=== PATIENT | female | born 1985 | race Caucasian/White ===

== ENCOUNTER 2016-09-14 14:11 | Emergency (ER) | payer MEDICAID ==
[2016-09-14 14:24] VITALS: BP 121/83
[2016-09-14] MEDS ORDERED: Sodium Chloride 0.9% 10 ML Syringe FLUSH PRN (15:18)
[2016-09-14] MEDS ORDERED: LORazepam 2 MG/ML MDV IVPUSH ONE (15:19)
[2016-09-14] MEDS ORDERED: Sodium Chloride 0.9% 1,000 ML IV ONE (15:19)
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
--- NOTE | 2016-09-14 16:16 | CR ---
Chest: Two views of the chest were obtained. Comparison: No previous study. Heart size and mediastinum are normal. Lungs are clear but hyperinflated. Bony structures are grossly intact. Impression: 1. Emphysematous change. No acute intrathoracic process is seen. Diagnostic code #2
== END 2016-09-14 18:30 | disposition home or self-care (01) ==
LOC: JD.ED 14:11 → SUPCPDRO 14:11 → JD.ED 18:30
DX: F41.8 Other specified anxiety disorders (principal); F17.210 Nicotine dependence, cigarettes, uncomplicated
CPT/HCPCS: 36415; 71020; 80053; 80306; 81001; 83735; 84703; 85025; 86140; 93005; 96361; 96374; 99285; G0480; J2060; J7040; J7050

== ENCOUNTER 2016-11-24 22:10 | Emergency (ER) | payer MEDICAID ==
[2016-11-24 22:18] VITALS: BP 118/83
[2016-11-24] MEDS ORDERED: Metoclopramide 10 MG/2 ML SDV IVPUSH ONE (22:23)
--- NOTE | 2016-11-24 22:28 | EDM.PDOC ---
ED HPI GENERAL MEDICAL PROBLEM - General Chief Complaint: Drug or Alcohol Abuse Stated Complaint: [facility] Time Seen by Provider: 11/24/16 22:23 Source of Information: Reports: Patient History Limitations: Reports: No Limitations - History of Present Illness INITIAL COMMENTS - FREE TEXT/NARRATIVE: 31-year-old female brought to the ED per local ambulance after they were summoned to a local home where she had passed out. History suggests that she left the bar with a unknown gentleman. She's been drinking vodka most of the day. She was alert and could speak to ambulance personnel. Similarly she was alert here in the ED but is obviously severely intoxicated by alcohol or other substances. Denies trauma or falls or head injuries. She denies being . She reports sexual relationship was consensual and that she was not raped. She denies any nausea or vomiting. Not sure when she ate last. Onset: Today Onset Date: 11/24/16 Duration: Hour(s): (Has been drinking most of the afternoon and evening hours.) Location: Reports: Generalized (Intoxicated.) Severity: Moderate Improves with: Reports: None Worsens with: Reports: None Context: Reports: Other (Intoxication by alcohol and/or other substances.) Associated Symptoms: Reports: Confusion, Malaise, Weakness. Denies: Chest Pain , Cough, cough w sputum, Diaphoresis, Fever/Chills, Headaches, Nausea/Vomiting, Rash, Seizure, Shortness of Breath, Syncope Treatments RN EMERGENCY: Reports: Other (see below) (None known.) Headache Pain Score (Numeric/FACES): 2 - Related Data Allergies Allergy/AdvReac Type Severity Reaction Status Date / Time No Known Allergies Allergy Verified 09/14/16 14:32 Home Meds: Home Meds LORazepam [Ativan] 0.5 mg PO TID PRN #9 tablet 09/14/16 [Rx] Mirtazapine [Remeron] 30 mg PO BEDTIME #30 tablet 09/14/16 [Rx] Citalopram [Celexa] 0 mg PO DAILY 11/24/16 [History] Past Medical History Psychiatric History: Reports: Addiction, Anxiety, Depression, Emotional Problems , Panic Attack Social & Family History - Tobacco Use Smoking Status *Q: Current Every Day Smoker Years of Tobacco use: 17 Packs/Tins Daily: 1 - Caffeine Use Caffeine Use: Reports: Coffee, Tea - Recreational Drug Use Recreational Drug Use: No - Living Situation & Occupation Living situation: Reports: Single Occupation: Unemployed ED ROS GENERAL - Review of Systems Review Of Systems: See Below Constitutional: Reports: Malaise, Decreased Appetite HEENT: Reports: Vision Change (Vision is blurred at times) Respiratory: Reports: No Symptoms Cardiovascular: Reports: No Symptoms Endocrine: Reports: No Symptoms GI/Abdominal: Reports: No Symptoms : Reports: Frequency Musculoskeletal: Reports: No Symptoms Skin: Reports: No Symptoms Neurological: Reports: Dizziness, Other (Trouble concentrating) Psychiatric: Reports: No Symptoms Hematologic/Lymphatic: Reports: No Symptoms Immunologic: Reports: No Symptoms - Physical Exam Exam: See Below Exam Limited By: Intoxication (Smells strongly of vodka.) General Appearance: Lethargic, Other (Disheveled appearance. Not wearing any underwear and looks to be wearing male pair of Blue jeans.) Eye Exam: Bilateral Eye: Nystagmus (Bilaterally on lateral gaze.) Throat/Mouth: Normal Inspection, Normal Lips, Normal Oropharynx Head Exam: Atraumatic, Normocephalic Neck: Normal Inspection, Supple, Non-Tender, Full Range of Motion Respiratory/Chest: No Respiratory Distress, Lungs Clear, Normal Breath Sounds, No Accessory Muscle Use Cardiovascular: Normal Peripheral Pulses, Regular Rate, Rhythm, No Edema, No Gallop, No Murmur GI/Abdominal: Normal Bowel Sounds, Soft, Non-Tender, No Organomegaly, No Abnormal Bruit, Other (Question palpable uterine fundus at 18 weeks gestation.) Neuro Exam (Abbreviated): CN II-XII Intact DTR: 0: Patella (R), Patella (L), 1+: Bicep (R), Bicep (L), Patella (R), Patella (L) Back Exam: Normal Inspection, Full Range of Motion. No: CVA Tenderness (L), CVA Tenderness (R) Extremities: Normal Inspection, Normal Range of Motion, Non-Tender, No Pedal Edema, Normal Capillary Refill Psychiatric: Flat Affect Skin Exam: Warm, Dry, Intact, Normal Color, No Rash Course - Vital Signs Last Recorded V/S: Last Vital Signs Temp 36.2 C 11/24/16 22:16 Pulse 89 11/24/16 22:16 Resp 17 11/24/16 22:16 BP 118/83 11/24/16 22:16 Pulse Ox 98 11/24/16 22:16 - Orders/Labs/Meds Orders: Active Orders 24 hr Category Date Time Status Dextrose 5%-0.9% NaCl [Dextrose 5%-Normal Saline] 1,000 Med 11/24/16 22:30 Active ml IV ASDIRECTED Medication Orders Dextrose/Sodium Chloride (Dextrose 5%-Normal Saline) 1,000 mls @ 150 mls/hr IV ASDIRECTED MIKE Last Admin: 11/24/16 22:27 Dose: 150 mls/hr Labs: Laboratory Tests 11/24/16 11/24/16 11/24/16 Range/Units 22:25 22:31 22:31 WBC 7.08 (3.98-10.04) K/mm3 RBC 4.06 (3.98-5.22) M/mm3 Hgb 13.1 (11.2-15.7) gm/L Hct 38.9 (34.1-44.9) % MCV 95.8 H (79.4-94.8) fl MCH 32.3 H (25.6-32.2) pg MCHC 33.7 (32.2-35.5) g/dl RDW Std Deviation 44.5 (36.4-46.3) fL Plt Count 224 (182-369) K/mm3 MPV 9.8 (9.4-12.3) fl Neutrophils % (Manual) 58 (40-60) % Band Neutrophils % 0 (0-10) % Lymphocytes % (Manual) 24 (20-40) % Atypical Lymphs % 0 % Monocytes % (Manual) 14 H (2-10) % Eosinophils % (Manual) 3 (0.7-5.8) % Basophils % (Manual) 0 L (0.1-1.2) Myelocytes % 1 Platelet Estimate Adequate Plt Morphology Comment Normal RBC Morph Comment Normal Sodium 143 (136-145) mEq/L Potassium 3.8 (3.5-5.1) mEq/L Chloride 109 H (98-107) mEq/L Carbon Dioxide 25 (21-32) mEq/L Anion Gap 12.8 (5-15) BUN 12 (7-18) mg/dL Creatinine 0.9 (0.55-1.02) mg/dL Est Cr Clr Drug Dosing 97.04 mL/min Estimated GFR (MDRD) > 60 (>60) mL/min BUN/Creatinine Ratio 13.3 L (14-18) Glucose 89 (74-106) mg/dL Calcium 8.1 L (8.5-10.1) mg/dL Total Bilirubin 0.2 (0.2-1.0) mg/dL AST 16 (15-37) U/L ALT 20 (14-59) U/L Alkaline Phosphatase 93 (46-116) U/L Total Protein 8.0 (6.4-8.2) g/dl Albumin 4.0 (3.4-5.0) g/dl Globulin 4.0 gm/dL Albumin/Globulin Ratio 1.0 (1-2) Amylase 57 (25-115) U/L HCG, Qual (NEGATIVE) Urine Opiates Screen Negative (NEGATIVE) Ur Buprenorphine Scrn Negative (NEGATIVE) Ur Oxycodone Screen Negative (NEGATIVE) Urine Methadone Screen Negative (NEGATIVE) Ur Propoxyphene Screen Negative (NEGATIVE) Ur Barbiturates Screen Negative (NEGATIVE) Ur Tricyclics Screen Negative (NEGATIVE) Ur Phencyclidine Scrn Negative (NEGATIVE) Ur Amphetamine Screen Negative (NEGATIVE) U Methamphetamines Scrn Negative (NEGATIVE) U Benzodiazepines Scrn Negative (NEGATIVE) U Cocaine Metab Screen Negative (NEGATIVE) U Marijuana (THC) Screen Negative (NEGATIVE) Ethyl Alcohol 0.29 (0.00) gm% 11/24/16 Range/Units 22:31 WBC (3.98-10.04) K/mm3 RBC (3.98-5.22) M/mm3 Hgb (11.2-15.7) gm/L Hct (34.1-44.9) % MCV (79.4-94.8) fl MCH (25.6-32.2) pg MCHC (32.2-35.5) g/dl RDW Std Deviation (36.4-46.3) fL Plt Count (182-369) K/mm3 MPV (9.4-12.3) fl Neutrophils % (Manual) (40-60) % Band Neutrophils % (0-10) % Lymphocytes % (Manual) (20-40) % Atypical Lymphs % % Monocytes % (Manual) (2-10) % Eosinophils % (Manual) (0.7-5.8) % Basophils % (Manual) (0.1-1.2) Myelocytes % Platelet Estimate Plt Morphology Comment RBC Morph Comment Sodium (136-145) mEq/L Potassium (3.5-5.1) mEq/L Chloride (98-107) mEq/L Carbon Dioxide (21-32) mEq/L Anion Gap (5-15) BUN (7-18) mg/dL Creatinine (0.55-1.02) mg/dL Est Cr Clr Drug Dosing mL/min Estimated GFR (MDRD) (>60) mL/min BUN/Creatinine Ratio (14-18) Glucose (74-106) mg/dL Calcium (8.5-10.1) mg/dL Total Bilirubin (0.2-1.0) mg/dL AST (15-37) U/L ALT (14-59) U/L Alkaline Phosphatase (46-116) U/L Total Protein (6.4-8.2) g/dl Albumin (3.4-5.0) g/dl Globulin gm/dL Albumin/Globulin Ratio (1-2) Amylase (25-115) U/L HCG, Qual Negative (NEGATIVE) Urine Opiates Screen (NEGATIVE) Ur Buprenorphine Scrn (NEGATIVE) Ur Oxycodone Screen (NEGATIVE) Urine Methadone Screen (NEGATIVE) Ur Propoxyphene Screen (NEGATIVE) Ur Barbiturates Screen (NEGATIVE) Ur Tricyclics Screen (NEGATIVE) Ur Phencyclidine Scrn (NEGATIVE) Ur Amphetamine Screen (NEGATIVE) U Methamphetamines Scrn (NEGATIVE) U Benzodiazepines Scrn (NEGATIVE) U Cocaine Metab Screen (NEGATIVE) U Marijuana (THC) Screen (NEGATIVE) Ethyl Alcohol (0.00) gm% Meds: Medications Generic Name Dose Route Start Last Admin Trade Name Freq PRN Reason Stop Dose Admin Dextrose/Sodium Chloride 1,000 mls @ 150 mls/hr 11/24/16 22:30 11/24/16 22:27 Dextrose 5%-Normal Saline IV 150 mls/hr ASDIRECTED MIKE Administration Discontinued Medications Generic Name Dose Route Start Last Admin Trade Name Freq PRN Reason Stop Dose Admin Metoclopramide HCl 10 mg 11/24/16 22:23 11/24/16 22:27 Reglan IVPUSH 11/24/16 22:24 10 mg ONETIME ONE Administration - Radiology Interpretation Free Text/Narrative:: 31-year-old female brought to the ED per ambulance. Emesis was summoned due to patient being passed out. Suggest that she's been drinking heavily this afternoon and this evening and was taken to a local home her [place] by a gentleman from the bar. Apparently she passed out and he became concerned that she may not be breathing. Per medics identified her to be alert enough to answer questions upon deep stimulation. She is obviously very intoxicated and smells strongly of vodka. She denies any nausea vomiting or trauma. There is no outward signs of trauma on examination. She is intoxicated. Kelly labs and a beta -hCG. Blood alcohol level and urine drug screen to be obtained. IV will be D5 normal saline at 125 mils per hour. Given Reglan 10 mg IV to prevent any nausea and vomiting. - Re-Assessments/Exams Free Text/Narrative Re-Assessment/Exam: 11/24/16 23:23 labs reveal a normal white count at 7.08 hemoglobin is 13.1 MCPs a little bit elevated at 95.8 hematocrit is 38.9 platelet is 224,000. Urine drug treatment is negative. HCG was negative. Blood alcohol is currently 0.29 g percent. Sodium 143 potassium 3.8 toward 109 bicarbonate 25. Anion gap is 12.8. Glucose is 89. Plan she will be here till she can walk and talk i.e. fadumo up significantly. Likely will be her the remainder of the night. Will place her on observation status. Patient is currently status to sleep. 11/25/16 00:30: Patient got up and pulled her IV loose from the IV bag.She had to void and was led to the bathroom. IV was restarted by nursing staff. She's now back in bed and sleeping. 11/25/16 02:38 patient has fallen back asleep and is resting at present. Vital signs show heart rate of 90/m sats of 96%. She'll be in the ED overnight at least until she can walk and talk normally and be discharged safely. 11/25/16 06:33 patient is alert and talking and walking. She reports no injuries. She'll therefore be discharged from the ED and has money for a taxi ride home. Departure - Departure Time of Disposition: 06:33 Disposition: Home, Self-Care 01 Condition: Fair Clinical Impression: Acute alcohol intoxication Qualifiers: Complication of substance-induced condition: uncomplicated Qualified Code(s): F10.920 - Alcohol use, unspecified with intoxication, uncomplicated - Discharge Information Instructions: Alcohol Intoxication, [id number] Referrals: PCP,Unknown [Primary Care Provider] - Additional Instructions: Evaluation in the emergency room tonight in regards to acute severe alcohol intoxication. Ambulance was summoned to a local home where you were found to be passed out. The gentleman whom was with you was very concerned that you were not breathing. You're found to be breathing but severely obtunded by the effect of alcohol. You were brought to the emergency room for observation. Lab testing revealed normal white blood cell count and platelets. Blood alcohol level was 0.29 g percent L over 3 times the normal legal limit to drive a motor vehicle. You therefore were treated with intravenous fluids and anti-nausea medication well in the ED overnight. You're discharged to home once you were walking and talking and blood alcohol levels were coming down to a safer level. He would not be able to operate a motor vehicle until afternoon hour today before your blood alcohol will reach below 0.08 g percent. If you feel you have a concern with alcohol dependency suggest calling [facility] at [phone] to speak with an alcohol and drug counselor. - My Orders Last 24 Hours: My Active Orders 11/24/16 22:30 Dextrose 5%-0.9% NaCl [Dextrose 5%-Normal Saline] 1,000 ml IV ASDIRECTED - Assessment/Plan Last 24 Hours: My Active Orders 11/24/16 22:30 Dextrose 5%-0.9% NaCl [Dextrose 5%-Normal Saline] 1,000 ml IV ASDIRECTED
[2016-11-24] MEDS ORDERED: Dextrose 5%-0.9% NaCl 1,000 ML IV SCH (22:30)
== END 2016-11-25 06:38 | disposition home or self-care (01) ==
LOC: JD.ED 22:10
DX: F10.920 Alcohol use, unspecified with intoxication, uncomplicated (principal); F17.210 Nicotine dependence, cigarettes, uncomplicated; F41.0 Panic disorder [episodic paroxysmal anxiety]; F32.9 Major depressive disorder, single episode, unspecified; Z79.899 Other long term (current) drug therapy; Y90.1 Blood alcohol level of 20-39 mg/100 ml
CPT/HCPCS: 36415; 80053; 80306; 82150; 84703; 85025; 96361; 96374; 99285; G0480; J2765; J7042; 99284

== ENCOUNTER 2016-12-24 15:59 | Emergency (ER) | payer MEDICAID ==
[2016-12-24] MEDS ORDERED: Ketorolac 30 MG/ML SDV IVPUSH ONE (16:59)
[2016-12-24] MEDS ORDERED: Sodium Chloride 0.9% 10 ML Syringe FLUSH PRN ×2 (16:59→18:01)
[2016-12-24 17:36] LABS: ACETAMINOPHEN 0 ug/mL (10-30)
--- NOTE | 2016-12-24 17:46 | EDM.PDOCBH ---
ED HPI GENERAL MEDICAL PROBLEM - General Chief Complaint: Behavioral/Psych Stated Complaint: ANXIETY Time Seen by Provider: 12/24/16 16:41 Source of Information: Reports: Patient History Limitations: Reports: No Limitations - History of Present Illness INITIAL COMMENTS - FREE TEXT/NARRATIVE: 31-year-old female presents for evaluation treatment of depression and anxiety. Patient reports that she has been struggling with depression since the age of 14. She states it is steadily been worsening and over the last 4 days she has been having worsening depression, suicidal ideation and suicide attempt. Patient reports that she was previously on Celexa which works well for her. She states she went off one week ago because she felt that she no longer deserved to live and therefore did not see the point of taking any medication. Patient states 3 days ago she attempted to take her home life by hanging herself. She states that she did this with a belt. She was unsuccessful as she was too tall. She states she then, after the failed attempt, decided that she would attempt to take her life by starving herself. She decided to not drink any water or eat any foods. Reports she is a diabetic. Patient reports that she is not eating much. She states that she is not sleeping. She reports that she may have experienced some hallucinations with seeing spiders last night. Does not take any illicit drugs. She does binge drink. Reports that it is been almost 2 weeks since she was sober. Last drink was yesterday. She drank a bottle of rum and a bottle of wine. She denies any withdrawal symptoms. Reports that she's never had any seizures, hallucinations or agitation from withdrawal. She states that she sometimes feels shaky when she is sobering up. Patient has been seen a counselor at [facility]. Reports that she goes monthly for counseling. She has not been seen for psychiatry for medication management. No longer has refills of her celexa. Patient was admitted to [facility] in [place] in July. This occurred after a previous suicide attempt. She states that she "took all of her medications ". They put her on Remeron and trazodone but she has since gone off of these medications. Reports she does not know her mother's psychiatric history but states on her dad 's side he has a family history of schizophrenia and depression. Headache Pain Score (Numeric/FACES): 7 - Related Data Allergies Allergy/AdvReac Type Severity Reaction Status Date / Time No Known Allergies Allergy Verified 09/14/16 14:32 Home Meds: Home Meds Citalopram [Celexa] 20 mg PO DAILY 11/24/16 [History] Past Medical History - Past Health History Medical/Surgical History: Denies Medical/Surgical History Psychiatric History: Reports: Addiction, Anxiety, Depression, Emotional Problems , Panic Attack Social & Family History - Tobacco Use Smoking Status *Q: Current Every Day Smoker Years of Tobacco use: 15 Packs/Tins Daily: 1 - Caffeine Use Caffeine Use: Reports: Coffee - Recreational Drug Use Recreational Drug Use: No - Living Situation & Occupation Living situation: Reports: Single Occupation: Unemployed ED ROS GENERAL - Review of Systems Review Of Systems: See Below Constitutional: Denies: Fever Respiratory: Denies: Shortness of Breath, Cough Cardiovascular: Denies: Chest Pain GI/Abdominal: Denies: Abdominal Pain Neurological: Denies: Seizure Psychiatric: Reports: Agitation, Depression, Suicidal Ideation. Denies: Hallucinations, Homicidal Ideation ED EXAM, BEHAVIORAL HEALTH - Physical Exam Exam: See Below Exam Limited By: No Limitations General Appearance: Alert, WD/WN, Anxious Throat/Mouth: Normal Inspection, Normal Lips, Normal Voice, No Airway Compromise Neck: Normal Inspection, Supple, Non-Tender, Full Range of Motion Respiratory/Chest: No Respiratory Distress, Lungs Clear, Normal Breath Sounds Cardiovascular: Normal Peripheral Pulses, Regular Rate, Rhythm, No Murmur GI/Abdominal: Soft, Non-Tender Neurological: Alert, Normal Cognition Psychiatric: Alert, Depressed Mood, Tearful, Poor Eye Contact, Suicidal Plan, Suicidal Thoughts, Visual Hallucinations (questions if she saw spiders last night). No: Agitated, Homicidal Thoughts, Auditory Hallucinations Skin Exam: Warm, Dry, Normal color COURSE, BEHAVIORAL HEALTH COMP - Course Vital Signs: Last Vital Signs Temp 36.6 C 12/24/16 16:05 Pulse 92 12/24/16 16:05 Resp 20 12/24/16 16:05 BP 122/84 12/24/16 16:05 Pulse Ox 96 12/24/16 16:05 Orders, Labs, Meds: Active Orders 24 hr Category Date Time Status Peripheral IV Care [RC] . DIRECTED Care 12/24/16 17:00 Active Soft Tissue Neck w Cont [CT] Stat Exams 12/24/16 16:59 Taken Sodium Chloride 0.9% [Saline Flush] Med 12/24/16 16:59 Active 10 ml FLUSH ASDIRECTED PRN Sodium Chloride 0.9% [Saline Flush] Med 12/24/16 18:01 Active 10 ml FLUSH ONETIME PRN Peripheral IV Insertion Adult [OM.PC] Routine Oth 12/24/16 16:59 Ordered Medication Orders Sodium Chloride (Saline Flush) 10 ml FLUSH ASDIRECTED PRN PRN Reason: Keep Vein Open Last Admin: 12/24/16 17:13 Dose: 10 ml Sodium Chloride (Saline Flush) 10 ml FLUSH ONETIME PRN PRN Reason: IV FLUSH Last Admin: 12/24/16 18:19 Dose: 10 ml Laboratory Tests 12/24/16 12/24/16 12/24/16 Range/Units 16:27 16:27 16:27 WBC (3.98-10.04) K/mm3 RBC (3.98-5.22) M/mm3 Hgb (11.2-15.7) gm/L Hct (34.1-44.9) % MCV (79.4-94.8) fl MCH (25.6-32.2) pg MCHC (32.2-35.5) g/dl RDW Std Deviation (36.4-46.3) fL Plt Count (182-369) K/mm3 MPV (9.4-12.3) fl Neut % (Auto) (34.0-71.1) % Lymph % (Auto) (19.3-51.7) % [place] % (Auto) (4.7-12.5) % Eos % (Auto) (0.7-5.8) Baso % (Auto) (0.1-1.2) % Neut # (Auto) (1.56-6.13) K/mm3 Lymph # (Auto) (1.18-3.74) K/mm3 [place] # (Auto) (0.24-0.36) K/mm3 Eos # (Auto) (0.04-0.36) K/mm3 Baso # (Auto) (0.01-0.08) K/mm3 Sodium (136-145) mEq/L Potassium (3.5-5.1) mEq/L Chloride (98-107) mEq/L Carbon Dioxide (21-32) mEq/L Anion Gap (5-15) BUN (7-18) mg/dL Creatinine (0.55-1.02) mg/dL Est Cr Clr Drug Dosing mL/min Estimated GFR (MDRD) (>60) mL/min BUN/Creatinine Ratio (14-18) Glucose (74-106) mg/dL Hemoglobin A1c (4.50-6.20) % Calcium (8.5-10.1) mg/dL Total Bilirubin (0.2-1.0) mg/dL AST (15-37) U/L ALT (14-59) U/L Alkaline Phosphatase (46-116) U/L Total Protein (6.4-8.2) g/dl Albumin (3.4-5.0) g/dl Globulin gm/dL Albumin/Globulin Ratio (1-2) TSH 3rd Generation (0.358-3.74) uIU/mL Urine Color Light yellow (Yellow) Urine Appearance Clear (Clear) Urine pH 6.5 (5.0-8.0) Ur Specific [place] 1.020 (1.005-1.030) Urine Protein Negative (Negative) Urine Glucose (UA) Negative (Negative) Urine Ketones 1+ H (Negative) Urine Occult Blood Trace-intact H (Negative) Urine Nitrite Negative (Negative) Urine Bilirubin Negative (Negative) Urine Urobilinogen 0.2 (0.2-1.0) Ur Leukocyte Esterase 1+ H (Negative) Urine RBC 0-5 (0-5) /hpf Urine WBC 5-10 H (0-5) /hpf Ur Epithelial Cells 40-50 H (0-5) /hpf Urine Bacteria Rare (FEW) /hpf Urine Mucus Few (FEW) /hpf Urine HCG, Qual Negative (NEGATIVE) Salicylates (2.8-20) mg/dL Urine Opiates Screen Negative (NEGATIVE) Ur Buprenorphine Scrn Negative (NEGATIVE) Ur Oxycodone Screen Negative (NEGATIVE) Urine Methadone Screen Negative (NEGATIVE) Ur Propoxyphene Screen Negative (NEGATIVE) Acetaminophen (10-30) ug/mL Ur Barbiturates Screen Negative (NEGATIVE) Ur Tricyclics Screen Negative (NEGATIVE) Ur Phencyclidine Scrn Negative (NEGATIVE) Ur Amphetamine Screen Negative (NEGATIVE) U Methamphetamines Scrn Negative (NEGATIVE) U Benzodiazepines Scrn Negative (NEGATIVE) U Cocaine Metab Screen Negative (NEGATIVE) U Marijuana (THC) Screen Negative (NEGATIVE) Ethyl Alcohol (0.00) gm% 12/24/16 12/24/16 12/24/16 Range/Units 17:02 17:02 17:02 WBC 5.45 (3.98-10.04) K/mm3 RBC 4.37 (3.98-5.22) M/mm3 Hgb 14.0 (11.2-15.7) gm/L Hct 40.5 (34.1-44.9) % MCV 92.7 (79.4-94.8) fl MCH 32.0 (25.6-32.2) pg MCHC 34.6 (32.2-35.5) g/dl RDW Std Deviation 43.2 (36.4-46.3) fL Plt Count 214 (182-369) K/mm3 MPV 9.1 L (9.4-12.3) fl Neut % (Auto) 58.2 (34.0-71.1) % Lymph % (Auto) 34.3 (19.3-51.7) % [place] % (Auto) 7.3 (4.7-12.5) % Eos % (Auto) 0 L (0.7-5.8) Baso % (Auto) 0.2 (0.1-1.2) % Neut # (Auto) 3.17 (1.56-6.13) K/mm3 Lymph # (Auto) 1.87 (1.18-3.74) K/mm3 [place] # (Auto) 0.40 H (0.24-0.36) K/mm3 Eos # (Auto) 0.00 L (0.04-0.36) K/mm3 Baso # (Auto) 0.01 (0.01-0.08) K/mm3 Sodium 139 (136-145) mEq/L Potassium 3.9 (3.5-5.1) mEq/L Chloride 101 (98-107) mEq/L Carbon Dioxide 25 (21-32) mEq/L Anion Gap 16.9 H (5-15) BUN 11 (7-18) mg/dL Creatinine 0.8 (0.55-1.02) mg/dL Est Cr Clr Drug Dosing 108.44 mL/min Estimated GFR (MDRD) > 60 (>60) mL/min BUN/Creatinine Ratio 13.8 L (14-18) Glucose 71 L (74-106) mg/dL Hemoglobin A1c 5.20 (4.50-6.20) % Calcium 8.9 (8.5-10.1) mg/dL Total Bilirubin 0.4 (0.2-1.0) mg/dL AST 64 H (15-37) U/L ALT 57 (14-59) U/L Alkaline Phosphatase 90 (46-116) U/L Total Protein 8.1 (6.4-8.2) g/dl Albumin 4.1 (3.4-5.0) g/dl Globulin 4.0 gm/dL Albumin/Globulin Ratio 1.0 (1-2) TSH 3rd Generation 0.622 (0.358-3.74) uIU/mL Urine Color (Yellow) Urine Appearance (Clear) Urine pH (5.0-8.0) Ur Specific [place] (1.005-1.030) Urine Protein (Negative) Urine Glucose (UA) (Negative) Urine Ketones (Negative) Urine Occult Blood (Negative) Urine Nitrite (Negative) Urine Bilirubin (Negative) Urine Urobilinogen (0.2-1.0) Ur Leukocyte Esterase (Negative) Urine RBC (0-5) /hpf Urine WBC (0-5) /hpf Ur Epithelial Cells (0-5) /hpf Urine Bacteria (FEW) /hpf Urine Mucus (FEW) /hpf Urine HCG, Qual (NEGATIVE) Salicylates (2.8-20) mg/dL Urine Opiates Screen (NEGATIVE) Ur Buprenorphine Scrn (NEGATIVE) Ur Oxycodone Screen (NEGATIVE) Urine Methadone Screen (NEGATIVE) Ur Propoxyphene Screen (NEGATIVE) Acetaminophen 0 L (10-30) ug/mL Ur Barbiturates Screen (NEGATIVE) Ur Tricyclics Screen (NEGATIVE) Ur Phencyclidine Scrn (NEGATIVE) Ur Amphetamine Screen (NEGATIVE) U Methamphetamines Scrn (NEGATIVE) U Benzodiazepines Scrn (NEGATIVE) U Cocaine Metab Screen (NEGATIVE) U Marijuana (THC) Screen (NEGATIVE) Ethyl Alcohol 0.22 (0.00) gm% 12/24/16 Range/Units 17:02 WBC (3.98-10.04) K/mm3 RBC (3.98-5.22) M/mm3 Hgb (11.2-15.7) gm/L Hct (34.1-44.9) % MCV (79.4-94.8) fl MCH (25.6-32.2) pg MCHC (32.2-35.5) g/dl RDW Std Deviation (36.4-46.3) fL Plt Count (182-369) K/mm3 MPV (9.4-12.3) fl Neut % (Auto) (34.0-71.1) % Lymph % (Auto) (19.3-51.7) % [place] % (Auto) (4.7-12.5) % Eos % (Auto) (0.7-5.8) Baso % (Auto) (0.1-1.2) % Neut # (Auto) (1.56-6.13) K/mm3 Lymph # (Auto) (1.18-3.74) K/mm3 [place] # (Auto) (0.24-0.36) K/mm3 Eos # (Auto) (0.04-0.36) K/mm3 Baso # (Auto) (0.01-0.08) K/mm3 Sodium (136-145) mEq/L Potassium (3.5-5.1) mEq/L Chloride (98-107) mEq/L Carbon Dioxide (21-32) mEq/L Anion Gap (5-15) BUN (7-18) mg/dL Creatinine (0.55-1.02) mg/dL Est Cr Clr Drug Dosing mL/min Estimated GFR (MDRD) (>60) mL/min BUN/Creatinine Ratio (14-18) Glucose (74-106) mg/dL Hemoglobin A1c (4.50-6.20) % Calcium (8.5-10.1) mg/dL Total Bilirubin (0.2-1.0) mg/dL AST (15-37) U/L ALT (14-59) U/L Alkaline Phosphatase (46-116) U/L Total Protein (6.4-8.2) g/dl Albumin (3.4-5.0) g/dl Globulin gm/dL Albumin/Globulin Ratio (1-2) TSH 3rd Generation (0.358-3.74) uIU/mL Urine Color (Yellow) Urine Appearance (Clear) Urine pH (5.0-8.0) Ur Specific [place] (1.005-1.030) Urine Protein (Negative) Urine Glucose (UA) (Negative) Urine Ketones (Negative) Urine Occult Blood (Negative) Urine Nitrite (Negative) Urine Bilirubin (Negative) Urine Urobilinogen (0.2-1.0) Ur Leukocyte Esterase (Negative) Urine RBC (0-5) /hpf Urine WBC (0-5) /hpf Ur Epithelial Cells (0-5) /hpf Urine Bacteria (FEW) /hpf Urine Mucus (FEW) /hpf Urine HCG, Qual (NEGATIVE) Salicylates 3.6 (2.8-20) mg/dL Urine Opiates Screen (NEGATIVE) Ur Buprenorphine Scrn (NEGATIVE) Ur Oxycodone Screen (NEGATIVE) Urine Methadone Screen (NEGATIVE) Ur Propoxyphene Screen (NEGATIVE) Acetaminophen (10-30) ug/mL Ur Barbiturates Screen (NEGATIVE) Ur Tricyclics Screen (NEGATIVE) Ur Phencyclidine Scrn (NEGATIVE) Ur Amphetamine Screen (NEGATIVE) U Methamphetamines Scrn (NEGATIVE) U Benzodiazepines Scrn (NEGATIVE) U Cocaine Metab Screen (NEGATIVE) U Marijuana (THC) Screen (NEGATIVE) Ethyl Alcohol (0.00) gm% Medications Generic Name Dose Route Start Last Admin Trade Name Freq PRN Reason Stop Dose Admin Sodium Chloride 10 ml 12/24/16 16:59 12/24/16 17:13 Saline Flush FLUSH 10 ml ASDIRECTED PRN Administration Keep Vein Open Sodium Chloride 10 ml 12/24/16 18:01 12/24/16 18:19 Saline Flush FLUSH 10 ml ONETIME PRN Administration IV FLUSH Discontinued Medications Generic Name Dose Route Start Last Admin Trade Name Freq PRN Reason Stop Dose Admin Sodium Chloride 1,000 mls @ 999 mls/hr 12/24/16 19:29 12/24/16 19:45 Normal Saline IV 12/24/16 20:29 999 mls/hr ONETIME ONE Administration Iopamidol 80 ml 12/24/16 18:01 12/24/16 18:19 Isovue-300 (61%) IVPUSH 12/24/16 18:02 80 ml ONETIME ONE Administration Ketorolac Tromethamine 30 mg 12/24/16 16:59 12/24/16 17:09 Toradol IVPUSH 12/24/16 17:00 30 mg ONETIME ONE Administration Nicotine 21 mg 12/24/16 19:36 12/24/16 19:45 Habitrol DOUGLASM 12/24/16 19:37 21 mg ONETIME ONE Administration Re-Assessment/Re-Exam: Labs returned including the following. With blood cell count 5.45, hemoglobin 14.0 platelets are 214. Sodium 139, potassium 3.9 chloride 101. Anion gap 16.9. Glucose 71. TSH is 0.622. A1c is 5.20. Salicylates are 3.6. Acetaminophen is 0. HCG is negative. UA has 1+ ketones, trace blood and 1+ leukocytes. Negative for nitrates. alcohol is 0.22. drug screen is negative. CT of the neck soft tissue with contrast impression per [facility]: unremarkable soft tissue neck CT with contrast. No traumatic injury of the soft tissues or arteries of the neck. I feel the patient requires admission due to her recent suicide attempt. emergency [facility] paperwork has been filed. I spoke with Dr. Champion, psychiatrist at [facility] in [place]. He agrees to accept the patient. Plan will be to send the patient by [facility]. She will go through the ER due to her alcohol level being 0.22. Patient has received 1L NS, ativan 1mg and a transdermal nicotine patch. Medical Clearance: 12/24/16 20:55 Patient is cleared from a medical standpoint to go to the psychiatric unit at [facility] in [place]. Discharge vs Psych Eval/Treatment:: 12/24/16 20:55 Patient will go by [facility] to [facility] in [place]. Dr. Renee Charles excepting. Patient will go through the emergency department there prior to the psychiatric floor. Departure - Departure Time of Disposition: 21:00 Disposition: DC/Tfer to Psych Hosp/Unit 65 Condition: Fair Clinical Impression: Suicide attempt, Depression - Discharge Information Forms: ED Department Discharge Additional Instructions: emergency [facility] paperwork has been filled. Patient to go by [facility] department to [facility]. Patient will go through the ER. Dr. Champion accepting. - My Orders Last 24 Hours: My Active Orders 12/24/16 16:59 Soft Tissue Neck w Cont [CT] Stat Sodium Chloride 0.9% [Saline Flush] 10 ml FLUSH ASDIRECTED PRN Peripheral IV Insertion Adult [OM.PC] Routine 12/24/16 17:00 Peripheral IV Care [RC] . DIRECTED 12/24/16 18:01 Sodium Chloride 0.9% [Saline Flush] 10 ml FLUSH ONETIME PRN - Assessment/Plan Last 24 Hours: My Active Orders 12/24/16 16:59 Soft Tissue Neck w Cont [CT] Stat Sodium Chloride 0.9% [Saline Flush] 10 ml FLUSH ASDIRECTED PRN Peripheral IV Insertion Adult [OM.PC] Routine 12/24/16 17:00 Peripheral IV Care [RC] . DIRECTED 12/24/16 18:01 Sodium Chloride 0.9% [Saline Flush] 10 ml FLUSH ONETIME PRN
[2016-12-24] MEDS ORDERED: Iopamidol 612 MG/ML 100 ML Bottle IVPUSH ONE (18:01)
[2016-12-24] MEDS ORDERED: Sodium Chloride 0.9% 1,000 ML IV ONE (19:29)
[2016-12-24] MEDS ORDERED: Nicotine 21 MG/24 Hr Patch TRDERM ONE (19:36)
[2016-12-24] MEDS ORDERED: LORazepam 1 MG Tab PO ONE (20:55)
[2016-12-24 21:54] VITALS: BP 117/79
--- NOTE | 2016-12-25 13:59 | CT ---
CT neck Technique: Multiple axial sections were obtained through the neck. Intravenous contrast was utilized. Reconstructed sagittal and coronal images were reviewed. Comparison: No previous neck imaging is available. Findings: Visualized lung apices are clear but show minimal subpleural bulla within the left lung apex. Visualized sinuses are clear. Parotid and submandibular salivary glands are unremarkable. No adenopathy is seen. Normal enhancing vascular structures are noted. Thyroid gland appears normal. No soft tissue hematoma or mass is seen. Bone window settings were reviewed which show no fracture within the cervical spine. No abnormal subluxation is seen within the cervical spine. Impression: 1. Nothing acute is appreciated on CT study of the neck. Diagnostic code #1 I agree with preliminary report issued by [facility] ([facility] report finalized on 12/24/16, 8:37 PM Central Time)
== END 2016-12-24 21:25 ==
LOC: JD.ED 15:59
DX: T14.91 Suicide attempt (principal); F32.9 Major depressive disorder, single episode, unspecified; F17.210 Nicotine dependence, cigarettes, uncomplicated
CPT/HCPCS: 36415; 70491; 80053; 80306; 81001; 81025; 83036; 84443; 85025; 96361; 96374; 99285; A9270; G0480; J1885; J7040; J7050; Q9967; 99284